=== PATIENT | male | born 1955 | race Caucasian/White ===

== ENCOUNTER → 2017-07-25 | Outpatient (CLI) | payer BC ==
--- NOTE | 2017-07-26 09:28 | RADIOLOGY REPORT (SQ) ---
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 TECHNIQUE: Sagittal and Axial imaging includes T1, T2, STIR and gradient echo sequences. T1 post mckayla olinium sequences. CONTRAST TYPE AND DOSE: 15 mL Multihance. RENAL FUNCTION: GFR > 60. LIMITATIONS: None. FINDINGS: ALIGNMENT: Mild reversal of cervical lordosis VERTEBRAE: No compression deformities BONE MARROW: In the inferior half of C4, the entire C5, and upper endplate of C6, there is marrow fatmata ma and enhancement. There is also very subtle prevertebral soft tissue thickening and enhancement on midline sagittal image 7. No well-circumscribed fluid collection worrisome for abscess. DISCS: Post fusion at C4-5 and C5-6 with anterior hardware causing mild artifact. Old fusion without hardware, ankylosis across the disc space at C6-7. HARDWARE: Anterior hardware at C4-5 and C5-6 CORD AND BASE OF BRAIN: There is abnormal intrinsic cord signal along the right and left lateral cerv ical cord at the C5-6 disc level. This is best shown on axial series 6, image 19, axial series 7, im age 89, and sagittal images 6 and 8. Overall, the cervical cord is small at the C5-6 level, this mo st likely represents myelomalacia. Postcontrast, no abnormal intrinsic cord enhancement is seen. SOFT TISSUES: Diffusely enlarged thyroid, extends into the prevertebral space from the C4-5 disc leve l through the C7-T1 level. C1-C2: No significant spinal stenosis. C2-C3: Broad diffuse posterior disc bulging is present without central stenosis. High-grade right, m oderate left foraminal narrowing from facet and uncovertebral hypertrophy C3-C4: Broad diffuse posterior disc bulging is present partly effacing the ventral thecal sac without cord flattening or abnormal intrinsic cord signal. No significant central stenosis. High-grade rig ht, moderate left foraminal narrowing. C4-C5: Broad diffuse posterior disc bulge is present, partly effacing the ventral thecal sac. Border line central canal narrowing. No cord flattening or abnormal intrinsic cord signal. Moderate to hig h-grade bilateral foraminal narrowing is present. On the postcontrast T1 weighted images, there is e nhancement along the posterior half of the C4-5 intervertebral disc. C5-C6: Broad diffuse posterior disc bulge and bony spurring is present. Mild central canal narrowing . There is abnormal intrinsic cord signal from myelomalacia without contrast. High-grade bilateral foraminal stenosis. Contrast enhancement along the posterior half of the C5-6 disc best shown on sag ittal T1 postcontrast image 8. C6-C7: Remote prior discectomy and fusion without hardware. Ankylosis across the base from bone danni t material. Mild bilateral foraminal narrowing from facet and uncovertebral hypertrophy. C7-T1: No significant central stenosis. Mild bilateral foraminal narrowing from facet and uncoverteb ral hypertrophy UPPER THORACIC: Mild bilateral foraminal narrowing at T1-2 and T2-3 from facet and uncovertebral hype rtrophy ENHANCEMENT: Enhancement of the C4-C5 and C6 vertebral bodies and adjacent intervertebral discs. Tra ce enhancing soft tissue in the immediate pre vertebral soft tissues on sagittal T1 postcontrast imag es 6 through 9. OTHER: No other significant finding. IMPRESSION: Abnormal cervical cord, with high signal in the rightward lateral and leftward lateral c ord at the C5-6 disc level. No contrast enhancement. Mild cord atrophy at this level. Changes like ly represent myelomalacia. Recent anterior cervical fusion at C4-5 and C5-6. There is some edema and enhancement of the vertebr al bodies, intervertebral disc enhancement and minimal prevertebral soft tissue enhancement. This ma y all be postoperative in nature. Infection could not entirely be excluded. COMMENT: None. TECHNICAL DOCUMENTATION: JOB ID: [id number] [employer]- All Rights Reserved
== END ==
LOC: RAD 18:43
PROVIDERS: ATTEND Orthopaedic Surgery
DX: M50.30 Other cervical disc degeneration, unspecified cervical region (principal)
CPT/HCPCS: 82565; 72156; A9577